=== PATIENT | female | born 1975 | race Caucasian/White ===

== ENCOUNTER 2021-12-28 19:23 | Emergency (ER) | payer MEDICAID, OTHER ==
[~2021-12-28] VITALS: Ht 172.7 cm; Wt 120.2 kg
[2021-12-28 20:09] VITALS: BP 137/74
== END 2021-12-29 05:56 | disposition home or self-care (01) ==
LOC: EDBD 19:23 → ER 19:23
DX: F31.9 Bipolar disorder, unspecified (principal)

== ENCOUNTER 2022-06-08 01:25 | Emergency (ER) | payer MEDICAID ==
[~2022-06-08] VITALS: Ht 157.5 cm; Wt 100.0 kg
[2022-06-08] MEDS ORDERED: levETIRAcetam 500 MG TAB PO ONE (06:45)
[2022-06-08] MEDS ORDERED: SUMAtriptan SUCCINATE 6 MG/0.5 ML VL SC ONE (06:45)
[2022-06-08] MEDS ORDERED: SUMA50TA2 PO (06:46)
[2022-06-08] MEDS ORDERED: BACL10TA PO (06:46)
[2022-06-08] MEDS ORDERED: KEP500T PO (06:46)
[2022-06-08 07:07] VITALS: BP 120/72
== END 2022-06-08 07:08 | disposition home or self-care (01) ==
LOC: EDUNIT# 01:25 → EDBD 01:25 → ER 01:35
DX: G43.909 Migraine, unspecified, not intractable, without status migrainosus (principal); R56.9 Unspecified convulsions; F17.210 Nicotine dependence, cigarettes, uncomplicated; F12.10 Cannabis abuse, uncomplicated; Z76.0 Encounter for issue of repeat prescription
CPT/HCPCS: 96372; 99283; J3030